=== PATIENT | female | born 1980 | race Caucasian/White ===

== ENCOUNTER 2018-01-16 15:02 | Emergency (ER) | payer OTHER ==
[~2018-01-16] VITALS: Ht 167.6 cm; Wt 74.1 kg
[2018-01-16 15:07] VITALS: BP 121/80
--- NOTE | 2018-01-16 15:11 | NUR ---
PT AMBULATES TO BED 7
--- NOTE | 2018-01-16 15:11 | NUR ---
Patient ambulated to bed 7. RN evaluating patient at bedside.
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
--- NOTE | 2018-01-16 15:20 | NUR ---
Dr. Diaz evaluating patient at bedside.
[2018-01-16] MEDS ORDERED: MORPHINE SULFATE 5 MG/ML VIAL IM ONE (15:25)
[2018-01-16] MEDS ORDERED: MORPHINE SULFATE 4 MG/ML SYR IM ONE (15:30)
[2018-01-16 16:31] VITALS: BP 111/59
--- NOTE | 2018-01-16 16:31 | NUR ---
Patient discharged with v/s stable. Written and verbal after care instructions given and explained. Patient alert, oriented and verbalized understanding of instructions. Ambulatory with steady gait. All questions addressed prior to discharge. ID band removed. Patient advised to follow up with PMD. Rx of TRAMADOL, LIDODERM given. Patient educated on indication of medication including possible reaction and side effects. Opportunity to ask questions provided and answered.
== END 2018-01-16 16:31 | disposition home or self-care (01) ==
LOC: MED 15:02
DX: M54.5 Low back pain (principal); F41.9 Anxiety disorder, unspecified; G43.909 Migraine, unspecified, not intractable, without status migrainosus; Z88.1 Allergy status to other antibiotic agents
CPT/HCPCS: 81002; 81025; 96372; 99283; J2270